=== PATIENT | male | born 1990 | race Caucasian/White ===

== ENCOUNTER 2019-01-05 19:08 | Emergency (ER) | payer SELFPAY, MEDICAID ==
[2019-01-05] MEDS: KETOROLAC 30 MG INJ IM (22:38)
== END 2019-01-05 23:27 | disposition home or self-care (01) ==
LOC: FTE 19:08
DX: S39.012A Strain of muscle, fascia and tendon of lower back, initial encounter (principal); V49.50XA Passenger injured in collision with unspecified motor vehicles in traffic accident, initial encounter
CPT/HCPCS: 72100; 96372; 99284-25